=== PATIENT | male | born 1995 | race Caucasian/White ===

== ENCOUNTER 2016-11-15 21:36 | Emergency (ER) | payer OTHER ==
[~2016-11-15] VITALS: Ht 188 cm; Wt 88.5 kg
[2016-11-15 21:38] VITALS: BP 140/88
[2016-11-15] MEDS ORDERED: CEPHALEXIN 500 MG CAP PO ONE (22:15)
[2016-11-15] MEDS ORDERED: KEFL500C7 PO (22:20)
== END 2016-11-15 22:26 | disposition home or self-care (01) ==
LOC: M ED 22:00
DX: S71.101A Unspecified open wound, right thigh, initial encounter (principal); W26.0XXA Contact with knife, initial encounter; Y92.019 Unspecified place in single-family (private) house as the place of occurrence of the external cause; Y93.G1 Activity, food preparation and clean up; Y99.8 Other external cause status